=== PATIENT | male | born 1980 | race Caucasian/White ===

== ENCOUNTER 2017-02-01 21:39 | Emergency (ER) | payer SELFPAY ==
[2017-02-01 21:53] VITALS: TEMP 98.4
--- NOTE | 2017-02-01 22:04 | CPEKG ---
Heart Rate: 91 RR Interval: 659 P-R Interval: 140 QRSD Interval: 118 QT Interval: 372 QTC Interval: 458 P [place]: 78 QRS [place]: -80 T Wave [place]: 74 EKG Severity - ABNORMAL ECG - EKG Impression: SINUS RHYTHM EKG Impression: NONSPECIFIC IVCD WITH LAD Electronically Signed By: Kelly Lindsay 02-Feb-2017 07:18:16
--- NOTE | 2017-02-01 22:32 | EDPHY ---
H & P Stated Complaint: stress, racing heart, decreased PO intake Time Seen by Provider: 02/01/17 22:05 HPI/ROS: HPI The patient presents with insomnia which has been present for the last 3 days. He says he has been able to only sleep 3-4 hours a night. He says he is feeling exhausted currently and is beginning to feel like people are talking when they actually are not. He says he is not eating as much as he usually does and is drinking a lot of caffeine. He moved to just a few days ago to a new apartment and is still settling in. He denies any drug use currently, however has a prior history of methamphetamine abuse. 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 Eyes: No discharge. ENT: No sore throat. Cardiovascular: No chest pain, no palpitations. Respiratory: No cough, no shortness of breath. Gastrointestinal: No abdominal pain, no vomiting. Genitourinary: No hematuria. Musculoskeletal: No back pain. Skin: No rashes. Neurological: No headache. PMHx: PTSD, attention deficit hyperactivity disorder, bipolar disorder, not on any med Soc Hx: Prior methamphetamine use, recently relocated to [place] PHYSICAL General Appearance: Alert, no distress Eyes: Pupils equal and round no pallor or injection ENT, Mouth: Mucous membranes moist Respiratory: There are no retractions, lungs are clear to auscultation Cardiovascular: Regular rate and rhythm Gastrointestinal: Abdomen is soft and non-tender, no masses, bowel sounds normal Neurological: A&O, moves all extremities Skin: Warm and dry, no rashes Musculoskeletal: Neck is supple non tender Extremities: symmetrical, full range of motion Psychiatric: Patient is oriented X 3, there is no agitation Source: Patient Exam Limitations: No limitations - Personal History Current Tetanus/Diphtheria Vaccine: Yes Current Tetanus Diphtheria and Acellular Pertussis (TDAP): Yes - Medical/Surgical History Hx Asthma: No Hx Chronic Respiratory Disease: No Hx Diabetes: No Hx Cardiac Disease: No Hx Renal Disease: No Hx Cirrhosis: No Hx Alcoholism: No Hx HIV/AIDS: No Hx Splenectomy or Spleen Trauma: No Other PMH: PTSD, Bipolar, ADHD - Social History Smoking Status: Current every day smoker Constitutional: Initial Vital Signs Temperature (C) 36.9 C 07/03/17 21:50 Heart Rate 111 H 02/01/17 21:50 Respiratory Rate 16 02/01/17 21:50 Blood Pressure 146/89 H 02/01/17 21:50 O2 Sat (%) 94 02/01/17 21:50 O2 Delivery Mode Room Air Allergies/Adverse Reactions: No Known Allergies Allergy (Unverified 02/01/17 21:49) Home Medications: Medication Instructions Recorded NK [No Known Home Meds] 02/01/17 Medical Decision Making - Diagnostics EKG Interpretation: EKG: Complete interpretation has been separately recorded in the [facility] archive. Summary impression: Nonspecific interventricular conduction delay with leftward axis Differential Diagnosis: This is a 36-year-old male with PTSD, attention deficit hyperactivity disorder, bipolar disorder per his report with history of methamphetamine abuse who presents with insomnia for the last several days. This is now become associated with auditory hallucinations. He denies any SI or HI. He is able to work and complete his usual ADLs. I feel he is likely suffering from insomnia due to increased social stressors with his move, new job and also caffeine intake. I have also considered psychosis related to his underlying psychiatric disorders, cardiac arrhythmia, depression. EKG is unremarkable. I counseled the patient on insomnia, I have recommended melatonin and Unisom. We have discussed good sleep hygiene. He is comfortable going home. I will refer him to [facility]. Departure - Departure Disposition: Home, Routine, Self-Care Clinical Impression: Insomnia Qualifiers: Insomnia type: unspecified Qualified Code(s): G47.00 - Insomnia, unspecified Condition: Good Instructions: Insomnia (ED) Additional Instructions: I recommend that you take melatonin 5 mg before bed. This should help you to sleep. If you still have difficulty sleeping, you can add Unisom 10 mg before bed. Both of these prescriptions are available [email or web address]. Please work on establishing and nighttime sleep routine. Please avoid caffeine after noon. Referrals: [facility],. [Clinic] - As per Instructions [facility] [Clinic] - As per Instructions
[2017-02-01 23:03] VITALS: BP 134/85; PULSE 99; RESP 14; O2SAT 93
== END 2017-02-01 23:03 | disposition home or self-care (01) ==
DX: G47.00 Insomnia, unspecified (principal); F17.200 Nicotine dependence, unspecified, uncomplicated